=== PATIENT | female | born 1995 | race Native Hawaiian/Other Pacific Islander ===

== ENCOUNTER 2018-06-13 13:58 | Emergency (ER) | payer OTHER ==
[~2018-06-13] VITALS: Ht 165.1 cm; Wt 59.0 kg
[2018-06-13 14:10] VITALS: BP 140/88; TEMP 99
== END 2018-06-13 16:15 | disposition home or self-care (01) ==
LOC: ED 13:58
DX: M79.622 Pain in left upper arm (principal); R07.89 Other chest pain; M54.2 Cervicalgia
CPT/HCPCS: 99282